=== PATIENT | female | born 1950 | race Caucasian/White ===

== ENCOUNTER 2016-09-18 02:31 | Inpatient (IN) | payer OTHER ==
[2016-09-18] VITALS (10 sets, daily range): BP systolic 93–133; BP diastolic 54–63; PULSE 82–133; RESP 15–20; Ht 172.7 cm; Wt 78.0 kg
[~2016-09-18] VITALS: Ht 172.7 cm; Wt 78.0 kg
[~2016-09-18 02:31] MED LIST: ALBU8.5H3 INH; ATEN-51 PO; CHOL20003 PO; CYAN500T46 PO; DILT180C75 PO; DOCU-144 PO; FER325 PO; FURO20TA3 PO; GABA300C16 PO; HYDR-3498 PO; LEVO50TA74 PO; MONT10TA21 PO; PANT40TA4 PO; SENN-8 PO; VENL75TA2 PO; ZOC10 PO
[2016-09-18] MEDS ORDERED: COU5 PO (08:59)
[2016-09-18] MEDS ORDERED: FUROSEMIDE 20 MG TAB PO PRN (09:00)
[2016-09-18] MEDS ORDERED: METOPROLOL 25 MG TAB PO SCH (09:00)
[2016-09-18] MEDS ORDERED: ACETAMINOPHEN 650 MG SUPP PR PRN (09:00)
[2016-09-18] MEDS ORDERED: ALBUTEROL HFA 8 GM INHALER INH PRN (09:00)
[2016-09-18] MEDS ORDERED: ONDANSETRON 4 MG TAB PO PRN (09:00)
[2016-09-18] MEDS ORDERED: DOCUSATE SODIUM 100 MG CAP PO PRN (09:00)
[2016-09-18] MEDS ORDERED: NACL 0.9% 3 ML SYG IV SCH (09:00)
--- NOTE | 2016-09-18 09:14 | HP ---
Date/Time of Note Date/Time of Note DATE: 09/18/16 TIME: 09:01 Assessment/Plan VTE Prophylaxis VTE Prophylaxis Intervention: heparin Assessment/Plan Problems: (1) Vertigo Status: Chronic Comment: This is a chronic problem and a major issue in her life. Unfortunately use the meclizine may alter her gastroesophageal reflux disease but we should be able to use that. I will try giving her low-dose niacin to assist with this I will have the physical therapist work with her with the anti- vestibular maneuvers exercises to see if she can help herself at home (2) Chest pain Status: Acute Comment: Will go through the rule out [place] protocol however I believe this is not the answer here. I believe her chest pain is partially due to reflux and a lot due to inadequately and poorly treated asthma persistent moderate combined with arthritis. Major impediment to her care is her inability to consistently follow medical instructions which is led to this being her ninth admission in 2 years Qualifiers: Chest pain type: other chest pain Qualified Code: R07.89 - Other chest pain (3) Atrial fibrillation Status: Chronic Comment: Continue anticoagulation. Rate control should not be done with a nonselective beta-kaitlin in this patient with lung disease. As such we will use metoprolol XL along with the diltiazem which can help with some of the gastroesophageal reflux disease Qualifiers: Atrial fibrillation type: chronic Qualified Code: I48.2 - Chronic atrial fibrillation (4) B12 deficiency anemia Status: Chronic Comment: Replace Qualifiers: Vitamin B12 deficiency anemia type: unspecified B12 deficiency Qualified Code: D51.9 - Anemia due to vitamin B12 deficiency, unspecified B12 deficiency type (5) Iron deficiency anemia Status: Chronic Comment: This is likely resulted from the upper source. However I note that she has never had a lower endoscopy. This can be done as an outpatient if we get the patient to cooperate. The patient informs me she has not seen a GI doctor outside of the hospital Qualifiers: Iron deficiency anemia type: chronic blood loss Qualified Code: D50.0 - Iron deficiency anemia due to chronic blood loss (6) Acquired hypothyroidism Status: Chronic Comment: Continue replacement therapy make sure we are giving her enough (7) Hyperlipidemia Status: Chronic Comment: Continue statin therapy Qualifiers: Hyperlipidemia type: pure hypercholesterolemia Qualified Code: E78.00 - Pure hypercholesterolemia (8) Asthma, moderate persistent, poorly-controlled Status: Chronic Comment: She is off of treatment for this and is using albuterol as her only source of therapy which she is using at least twice a day. By definition this is poorly controlled. Should go back on to control her medications now we will adjust away from the noncardioselective beta-kaitlni (9) Adult pyloric stenosis Status: Chronic Comment: This apparently is still in good shape after the last pyloric dilation (10) Deep venous thrombosis of right peroneal vein Status: Chronic Comment: Noted the patient's coumadinized for the A. fib (11) Mild early onset dysthymic disorder, in full remission, with anxious distress, with intermittent major depressive episodes, with current episode Status: Chronic Comment: Continue the venlafaxine HPI/ROS Admit Date/Time Admit Date/Time Sep 18, 2016 at 06:15 Hx of Present Illness This is the [facility] admission in the last 2 years for this 65-year-old right-handed single female admitted on transfer from the emergency room at [facility]. She came with a labile of chest pain. She has an extensive medical history to be documented below however her chest pain has been stable and unchanging for over 2 weeks. She has a history of organic heart disease with chronic atrial fibrillation having had several echocardiograms in the last 2 years. Her echoes have variably been read as having diastolic dysfunction versus not which is a technical issue due to the chronic A. fib. She does not have diabetes she does not have hypertension she does have hyperlipidemia she has a positive family history of coronary disease she is a non-smoker. She has no known elevation of uric acid. It should be noted she has asthma persistent moderate that is actually off of treatment. ROS Constitutional: no complaints (Denies fevers chills or sweats) Eyes: no complaints ENT: no complaints Respiratory: cough (Occasional cough), other (Positive nocturnal awakening), shortness of breath (Denies shortness of breath) Cardiovascular: chest pain (Chest pain described as coming from the back straight through to the front as if she has been penetrated by a spear it does not change with respirations eating changing positions. There is been no associated dyspnea nausea vomiting or diaphoresis), palpitations (Intermittent palpitations) Gastrointestinal: no complaints (Presently denies any GI complaints although she does have reflux) Genitourinary: no complaints Musculoskeletal: back pain (Mid back pain) Skin: no complaints Neurologic: other (Complains of chronic vertigo) Endocrine: no complaints Lymphatic: no complaints Psychological: no complaints PMH/Family/Social Past Medical History Organic heart diseasechronic atrial fibrillation/recurrent episodes of volume overload.; Right peroneal DVT; hypertension; hyperlipidemia; dysthymia with anxiety; iron deficiency anemia; history of pyloric channel ulcer with pyloric stenosis requiring dilation 3 separate times; chronic vertigo Medical History: GERD, high cholesterol, hypothyroid, peptic ulcer disease Past Surgical History Past Surgical Hx: cholecystectomy Family History Significant Family History: heart disease, cancer (Breast cancer), hypertension Social History She was born in [facility] [place] and raise here she has high school education of experience she has held various jobs 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 she lives with a gentleman she care takes for Alcohol Use: none Smoking Status: Former smoker Drug Use: other (Report a remote history of crystal meth usage) Exam/Review of Systems Vital Signs Vitals Vital Signs Date Time Temp Pulse Resp B/P Pulse Ox O2 Delivery O2 Flow Rate FiO2 09/18/16 08:30 103 09/18/16 06:58 97.9 18 133/60 94 09/18/16 06:45 Room Air Exam Exam Extremely difficult historian who will not answer questions directly and needs to be brought back into the line of questioning frequently Constitutional: alert, oriented Psych: anxiety Head: atraumatic, normocephalic Eyes: EOMI, PERRL, nl conjunctiva, nl lids, nl sclera ENMT: mucosa pink and moist, nl external ears & nose, nl nasal mucosa & septum , other (Dentition in poor repair) Neck: non-tender, other (No thyromegaly), supple Respiratory: wheezing (On forced expiratory maneuver she has wheezing; she has increased AP diameter decreased IT ratio) Cardiovascular: irregular rhythm, other (No S3) Gastrointestinal: bowel sounds (Bowel sounds are active), nl liver, spleen, non -tender, soft Musculoskeletal: nl extremities to inspection, nl gait and stance Extremities: normal pulses Neurological: SOAKER SODA WORKER II-XII intact, nl mental status, nl speech, nl strength Medications Medications Current Medications Ondansetron HCl (Zofran Tab) 4 mg Q6H PRN PO NAUSEA AND/OR VOMITING; Start 05/27 at 09:00 Acetaminophen (Tylenol Supp) 650 mg Q6H PRN HI PAIN LEVEL 1-3 OR FEVER; Start 09/18/16 at 09:00; Status UNV Pantoprazole (Protonix Tab) 40 mg DAILY@06 PO ; Start 09/19/16 at 06:00; Status UNV Metoprolol Tartrate (Lopressor) 25 mg BID PO ; Start 09/18/16 at 09:00; Status UNV Salmeterol Xinafoate/ Fluticasone (Advair 250/50 Diskus) 1 inh BID INH ; Start 09/18/16 at 09:00; Status UNV Montelukast Sodium (Singulair) 10 mg HS PO ; Start 09/18/16 at 21:00; Status UNV ALEXANDER MENA MD Sep 18, 2016 09:12
[2016-09-18] MEDS ORDERED: MECLIZINE 12.5 MG TAB PO PRN (09:30)
[2016-09-18 10:19] LABS: ADD SCAN DIFF NO
[2016-09-18] MEDS: GABAPENTIN 300 MG CAP PO SCH ×3 (10:22→20:45)
[2016-09-18] MEDS: SALMETEROL/FLUTICASONE 250/50 INHA INH SCH ×2 (10:22→20:45)
[2016-09-18] MEDS: FERROUS SULFATE (EC) 325 MG TAB PO SCH ×2 (10:23→20:45)
[2016-09-18] MEDS: DILTIAZEM (CD) 180 MG CAP PO SCH (10:23)
[2016-09-18] MEDS: METOPROLOL (XL) 25 MG TAB PO SCH ×2 (10:23→20:46)
[2016-09-18 10:24] LABS: BASOPHILS % 0.5 % (0.0-2.0); EOSINOPHILS # 0.1 10^3/ul (0.0-0.5); EOSINOPHILS % 2.3 % (0.0-7.0); HEMATOCRIT 36.1 % (37.0-47.0); HEMOGLOBIN 11.3 g/dl (12.0-16.0); LYMPHOCYTES # 1.6 10^3/ul (0.8-2.9); LYMPHOCYTES % 25.2 % (15.0-51.0); MEAN CORPUSCULAR HEMOGLOBIN 27.2 pg (29.0-33.0); MEAN CORPUSCULAR HGB CONC 31.3 g/dl (32.0-37.0); MEAN CORPUSCULAR VOLUME 86.8 fl (82.0-101.0); MEAN PLATELET VOLUME 9.7 fl (7.4-10.4); MONOCYTE # 0.3 10^3/ul (0.3-0.9); MONOCYTES % 4.5 % (0.0-11.0); NEUTROPHIL # 4.2 10^3/ul (1.6-7.5); NEUTROPHILS % 67.3 % (39.0-77.0); PLATELET COUNT 381 10^3/UL (140-415); RED BLOOD COUNT 4.16 10^6/ul (4.20-5.40); RED CELL DISTRIBUTION WIDTH 13.3 % (11.5-14.5); WHITE BLOOD COUNT 6.2 10^3/ul (4.8-10.8)
[2016-09-18] MEDS: NIACIN 50 MG TAB PO SCH (10:30)
[2016-09-18 10:35] LABS: ALBUMIN 3.3 g/dl (3.3-4.9); CHLORIDE 108 mmol/L (97-110); INR 2.09; POTASSIUM 3.8 mmol/L (3.5-5.1); PROTIME 23.7 Sec (12.2-14.2); PT RATIO 1.9; SODIUM 144 mmol/L (135-144)
[2016-09-18 10:36] LABS: PARTIAL THROMBOPLASTIN TIME 51.3 Sec (25.0-35.0)
[2016-09-18 10:37] LABS: CREATININE 0.78 mg/dl (0.44-1.00)
[2016-09-18 10:38] LABS: ALANINE AMINOTRANSFERASE 17 IU/L (13-69); ALBUMIN/GLOBULIN RATIO 1.03; ALKALINE PHOSPHATASE 74 IU/L (42-121); ANION GAP 17 (8-16); ASPARTATE AMINO TRANSFERASE 13 IU/L (15-46); BILIRUBIN,INDIRECT 0.1 mg/dl (0-1.1); BILIRUBIN,TOTAL 0.1 mg/dl (0.2-1.3); BLOOD UREA NITROGEN 17 mg/dl (7-20); CALCIUM 9.3 mg/dl (8.4-10.2); CARBON DIOXIDE 23 mmol/L (21-31); GLUCOSE 125 mg/dl (70-220); TOTAL PROTEIN 6.5 g/dl (6.1-8.1)
[2016-09-18 10:49] LABS: TROPONIN-I < 0.012 ng/ml (0.00-0.12)
[2016-09-18] MEDS: VENLAFAXINE (XR) 75 MG CAP PO SCH (11:21)
[2016-09-18 11:24] LABS: IRON 50 ug/dl (35-150)
[2016-09-18 11:33] LABS: TOTAL IRON BINDING CAPACITY 296 ug/dl (241-421)
[2016-09-18] MEDS: PANTOPRAZOLE (EC) 40 MG TAB PO SCH (13:38)
[2016-09-18] MEDS ORDERED: DILTIAZEM 25 MG INJ IV PRN (15:00)
--- NOTE | 2016-09-18 15:47 | CONS ---
DATE OF ADMISSION: 09/18/2016 DATE OF CONSULTATION: 09/18/2016 TYPE OF CONSULTATION: Cardiology REASON FOR CONSULTATION: Atrial fibrillation, rapid ventricular response as well as chest pain, ass ess for acute coronary syndrome. REQUESTING PHYSICIAN: Nicolas Cordoba MD HISTORY OF PRESENT ILLNESS: Ms. Deluna is a 65-year-old female with a history of atrial fibrillatio n on Coumadin, gastric outlet obstruction, dyslipidemia, recurrent bouts of chest pain with negative stress test for ischemia in 06/2016 with preserved left ventricular ejection fraction, depression, anemia, hypothyroidism, asthma, prior DVT, who presented initially to an outside hospital with compl aints of chest pain, back pain, as well as palpitations. At the outside hospital, the patient upon arrival, temperature 36.8, pulse of 132, blood pressure 130/83, respiratory rate 25, saturating 100% . The patient's labs notable for an INR of 2.5, therapeutic. Hemoglobin 11.5, platelet count 336, white blood count of 6.1. Troponin negative. The patient's EKG revealed atrial fibrillation, atria l flutter at a rate of 150 with normal axis and diffuse nonspecific ST and T-wave abnormalities. Th e patient was treated with IV brissa agents and transferred to [facility] due to in surance reasons. Since arrival at [facility], the patient has had overall improve ment in her heart rates with some episodes of tachycardia after receiving ongoing Toprol-XL with p.o . diltiazem. The patient at this time continues to complain of stabbing back pain radiating to her chest with subsequent chest pain at rest. PAST MEDICAL HISTORY: As above in HPI. MEDICATIONS CURRENTLY IN HOSPITAL: 1. Synthroid 50 mcg daily. 2. Singulair 10 mg at bedtime. 3. Lipitor 20 mg at bedtime. 4. Coumadin 5 mg daily. 5. Protonix 40 mg daily. 6. Niacin 50 mg daily. 7. Meclizine p.r.n. 8. Zofran p.r.n. 9. Tylenol p.r.n. 10. Advair b.i.d. 11. Diltiazem CD 180 mg daily. 12. Colace 100 mg p.o. q.12h. 13. Ferrous sulfate. 14. Lasix 20 mg daily p.r.n. 15. Neurontin 300 mg t.i.d. 16. Effexor 75 mg daily. 17. Toprol-XL 25 mg p.o. b.i.d. ALLERGIES: ERYTHROMYCIN. SOCIAL HISTORY: No current tobacco, ETOH or illicit drug use. FAMILY HISTORY: No history of sudden cardiac or early CAD. REVIEW OF SYSTEMS: As above in HPI. CONSTITUTIONAL: No fevers, chills. PULMONARY: No current shortness of breath. CARDIOVASCULAR: Chest pain, atrial fibrillation. GASTROINTESTINAL: No vomiting. GENITOURINARY: No hematuria. MUSCULOSKELETAL: Back pain. PSYCHIATRIC: Positive psychiatric history. NEUROLOGIC: Dizziness. PHYSICAL EXAMINATION: VITAL SIGNS: Temperature of 98.6, blood pressure 113/63, pulse in the 80s to 90s at this time. Sat urating 100%. GENERAL: The patient is alert, awake, complaining of back pain radiating to her chest, dizziness. NECK: JVP approximately 9 cm water. CHEST: Fair movement throughout with mildly decreased breath sounds at bases bilaterally. HEART: Irregularly irregular rhythm, I/ systolic murmur, nondisplaced PMI. ABDOMEN: Positive bowel sounds, soft. EXTREMITIES: No pitting edema, 1+ pulses bilaterally posterior tibial. LABORATORIES: As above in HPI, with most recently from here today at [facility]: White blood count 6.2, hemoglobin 11.3, platelet count 381. Sodium 144, potassium 3.8, creatinine 0.78, BUN 17. Troponin negative. INR of 2.09. IMAGING STUDIES: No imaging studies here for my review at this time. ECG: No electrocardiograms here for my review at this time. IMPRESSION: 1. Atrial fibrillation, rapid ventricular response, now improving with oral brissa agents. 2. Chest pain, assess for acute coronary syndrome with atypical symptomatology and negative stress test 06/2016. 3. Hypertension, under reasonable control. 4. Back pain. 5. Depression. 6. Anemia. 7. Dyslipidemia. 8. Asthma. 9. History of gastric outlet obstruction. 10. History of deep venous thrombosis. RECOMMENDATIONS: 1. At this time, would maintain the patient on telemetry monitoring to follow rhythm and rate contr ol closely. 2. Check serial EKGs to assess for any significant ongoing changes EKG today, EKG for any com plaints of chest pain or change in rhythm, EKG in the morning. 3. Continue the patient's current brissa agents with beta kaitlin and diltiazem with further up titr ation as necessary to improve overall heart rate control. 4. Continue the patient's Coumadin following a therapeutic INR closely. 5. Continue the patient's statin and adjust it according to a fasting lipid panel that is to be reid cked. 6. Continue the patient's iron replacement therapy in the setting of anemia, although the patient d oes not have microcytic indices at this time consistent with that. 7. Continue the patient's current Niacin additionally for treatment of lipid disorder, and continue the patient's psychiatric medications. Follow the patient's volume status closely and will check a TSH to assess the patient's current thyroid state and its possible contribution to her current atri al fibrillation. Thank you for allowing me to take part in the care of this patient. I will continue to follow her yousif hidalgo closely with you. Further recommendations will be made as the patient progresses through her in patient hospital clinical course. Dictated By: TRAY SALINAS/AIDEE Conf#: [id number] DID#: [id number] CC: NICOLAS CORDOBA MD;*EndCC*
[2016-09-18] MEDS: ACETAMINOPHEN 325 MG TAB PO PRN ×2 (15:49→22:26)
[2016-09-18 16:22] LABS: BARBITURATES Negative (NEGATIVE); BENZODIAZEPINES Negative (NEGATIVE); CANNABINOIDS Negative (NEGATIVE); COCAINE Negative (NEGATIVE); OPIATES Negative (NEGATIVE)
[2016-09-18] MEDS: WARFARIN 5 MG TAB PO SCH (17:28)
[2016-09-18] MEDS: ATORVASTATIN 10 MG TAB PO SCH (20:45)
[2016-09-18] MEDS: MONTELUKAST 10 MG TAB PO SCH (20:45)
[2016-09-19] VITALS (14 sets, daily range): BP systolic 92–132; BP diastolic 55–69; PULSE 61–82; RESP 15–20
[2016-09-19 05:40] LABS: ADD SCAN DIFF NO
[2016-09-19] MEDS: PANTOPRAZOLE (EC) 40 MG TAB PO SCH (05:48)
[2016-09-19 05:53] LABS: BASOPHILS % 0.8 % (0.0-2.0); EOSINOPHILS # 0.2 10^3/ul (0.0-0.5); EOSINOPHILS % 3.4 % (0.0-7.0); HEMATOCRIT 29.2 % (37.0-47.0); HEMOGLOBIN 9.2 g/dl (12.0-16.0); LYMPHOCYTES # 1.2 10^3/ul (0.8-2.9); LYMPHOCYTES % 25.3 % (15.0-51.0); MEAN CORPUSCULAR HEMOGLOBIN 27.1 pg (29.0-33.0); MEAN CORPUSCULAR HGB CONC 31.5 g/dl (32.0-37.0); MEAN CORPUSCULAR VOLUME 85.9 fl (82.0-101.0); MEAN PLATELET VOLUME 9.9 fl (7.4-10.4); MONOCYTE # 0.3 10^3/ul (0.3-0.9); MONOCYTES % 6.3 % (0.0-11.0); PLATELET COUNT 319 10^3/UL (140-415); RED CELL DISTRIBUTION WIDTH 13.2 % (11.5-14.5); WHITE BLOOD COUNT 4.8 10^3/ul (4.8-10.8)
[2016-09-19 06:05] LABS: ALBUMIN 2.8 g/dl (3.3-4.9)
[2016-09-19 06:08] LABS: CALCIUM 8.6 mg/dl (8.4-10.2); CREATININE 0.93 mg/dl (0.44-1.00); TOTAL PROTEIN 5.6 g/dl (6.1-8.1)
[2016-09-19 06:35] LABS: THYROID STIMULATING HORMONE 2.53 MIU/L (0.465-4.680)
[2016-09-19] MEDS: LEVOTHYROXINE 50 MCG TAB PO SCH (07:37)
[2016-09-19] MEDS: GABAPENTIN 300 MG CAP PO SCH ×3 (08:38→20:55)
[2016-09-19] MEDS: VENLAFAXINE (XR) 75 MG CAP PO SCH (08:38)
[2016-09-19] MEDS: SALMETEROL/FLUTICASONE 250/50 INHA INH SCH ×2 (08:38→20:54)
[2016-09-19] MEDS: DILTIAZEM (CD) 180 MG CAP PO SCH (08:38)
[2016-09-19] MEDS: FERROUS SULFATE (EC) 325 MG TAB PO SCH ×2 (08:38→20:55)
[2016-09-19] MEDS: CYANOCOBALAMIN 1000 MCG INJ IM SCH (08:39)
[2016-09-19] MEDS: NIACIN 50 MG TAB PO SCH (08:39)
[2016-09-19] MEDS: METOPROLOL (XL) 25 MG TAB PO SCH ×2 (09:00→20:55)
--- NOTE | 2016-09-19 12:29 | PN ---
Date/Time of Note Date/Time of Note DATE: 09/19/16 TIME: 12:26 Assessment/Plan VTE Prophylaxis VTE Prophylaxis Intervention: other Lines/Catheters IV Catheter Type (from Nrs): Saline Lock Assessment/Plan Problems: (1) B12 deficiency anemia Status: Chronic Comment: We will give 1 additional dose to help bring her levels up. This is also should also help with her did energy Qualifiers: Vitamin B12 deficiency anemia type: unspecified B12 deficiency Qualified Code: D51.9 - Anemia due to vitamin B12 deficiency, unspecified B12 deficiency type (2) Iron deficiency anemia Status: Chronic Comment: We will give 1 dose IV to get her levels up. Qualifiers: Iron deficiency anemia type: chronic blood loss Qualified Code: D50.0 - Iron deficiency anemia due to chronic blood loss (3) Vertigo Status: Chronic Comment: She reports that this is still an issue although I believe that with vestibular physical therapy she would do better. (4) Atrial fibrillation Status: Chronic Comment: Her rate is controlled and she is anticoagulated adequately with Coumadin Qualifiers: Atrial fibrillation type: chronic Qualified Code: I48.2 - Chronic atrial fibrillation (5) Acquired hypothyroidism Status: Chronic Comment: She is on stable replacement therapy (6) Hyperlipidemia Status: Chronic Qualifiers: Hyperlipidemia type: pure hypercholesterolemia Qualified Code: E78.00 - Pure hypercholesterolemia (7) Asthma, moderate persistent, poorly-controlled Status: Chronic Comment: This I believe is the cause of her symptoms including the smoldering chest pain. She is improving with treatment with Advair and that should be continued as an outpatient. The patient has been carefully counseled (8) Mild early onset dysthymic disorder, in full remission, with anxious distress, with intermittent major depressive episodes, with current episode Status: Chronic Comment: There is something going on in this patient's exterior life that she is not sharing. field services manager meet with her as she appears to be far more reticent to leave the hospital that makes sense under the circumstances Subjective 24 Hr Interval Summary Free Text/Dictation Patient reports she is feeling somewhat better. However when is discussed with the idea of going home the patient states that she would rather go to an ECF for a few days. The patient does not answer questions directly Constitutional: no complaints (Denies fever chills or sweats) Respiratory: no complaints (Denies dyspnea or cough) Cardiovascular: chest pain (Reports her chest pain has improved) Gastrointestinal: no complaints Genitourinary: no complaints Exam/Review of Systems Vital Signs Vitals Vital Signs Date Time Temp Pulse Resp B/P Pulse Ox O2 Delivery O2 Flow Rate FiO2 09/19/16 12:19 74 09/19/16 11:46 98.0 20 92/55 96 09/19/16 00:00 Room Air Intake and Output 09/18/16 09/18/16 09/19/16 15:00 23:00 07:00 Intake Total 800 ml 300 ml Balance 800 ml 300 ml Exam Constitutional: alert, oriented ENMT: other (Dentition in poor repair) Neck: non-tender, supple Respiratory: clear to auscultation, normal air movement Cardiovascular: nl pulses, regular rate and rhythm Results Result Diagram: 09/19/1651609/19/16516 Results 24 hrs Laboratory Tests Test 09/18/16 13:40 09/18/16 17:20 09/19/16 01:00 09/19/16 05:17 Urine Amphetamines Screen Negative Urine Barbiturates Negative Urine Benzodiazepines Screen Negative Urine Cannabinoids Negative Urine Cocaine Screen Negative Urine Opiates Screen Negative Troponin I < 0.012 0.023 Alanine Aminotransferase (ALT/SGPT) 18 Albumin 2.8 L Albumin/Globulin Ratio 1.00 Alkaline Phosphatase 65 Anion Gap 14 Aspartate Amino Transf (AST/SGOT) 12 L Basophils # 0.0 Basophils % 0.8 Blood Urea Nitrogen 21 H Calcium Level 8.6 Carbon Dioxide Level 24 Chloride Level 108 Creatinine 0.93 Direct Bilirubin 0.00 Eosinophils # 0.2 Eosinophils % 3.4 Globulin 2.80 Glucose Level 86 Hematocrit 29.2 L Hemoglobin 9.2 L Indirect Bilirubin 0.0 Lymphocytes # 1.2 Lymphocytes % 25.3 Mean Corpuscular Hemoglobin 27.1 L Mean Corpuscular Hemoglobin Concent 31.5 L Mean Corpuscular Volume 85.9 Mean Platelet Volume 9.9 Monocytes # 0.3 Monocytes % 6.3 Neutrophils # 3.0 Neutrophils % 64.0 Nucleated Red Blood Cells # 0.0 Nucleated Red Blood Cells % 0.0 Platelet Count 319 Potassium Level 4.0 Red Blood Count 3.40 L Red Cell Distribution Width 13.2 Sodium Level 142 Thyroid Stimulating Hormone (TSH) 2.530 Total Bilirubin 0.0 L Total Protein 5.6 L White Blood Count 4.8 # Medications Medications Current Medications Ondansetron HCl (Zofran Tab) 4 mg Q6H PRN PO NAUSEA AND/OR VOMITING Last administered on 09/18/16 13:31; Admin Dose 4 MG; Start 09/18/16 at 09:00 Acetaminophen (Tylenol Supp) 650 mg Q6H PRN OR PAIN LEVEL 1-3 OR FEVER; Start 09/18/16 at 09:00 Pantoprazole (Protonix Tab) 40 mg DAILY@06 PO Last administered on 09/19/16 05 :48; Admin Dose 40 MG; Start 09/18/16 at 14:00 Salmeterol Xinafoate/ Fluticasone (Advair 250/50 Diskus) 1 inh BID INH Last administered on 09/19/16 08:38; Admin Dose 1 INH; Start 09/18/16 at 09:00 Montelukast Sodium (Singulair) 10 mg HS PO Last administered on 09/18/16 20:45 ; Admin Dose 10 MG; Start 09/18/16 at 21:00 Albuterol (Ventolin Hfa) 2 puff TID PRN INH WHEEZING AND SOB; Start 09/18/16 at 09:00 Diltiazem HCl (Cardizem Cd) 180 mg DAILY PO Last administered on 09/19/16 08: 38; Admin Dose 180 MG; Start 09/18/16 at 09:00 Docusate Sodium (Colace) 100 mg Q12H PRN PO CONSTIPATION; Start 09/18/16 at 09: 00 Ferrous Sulfate (Ferrous Sulfate (Ec)) 325 mg BID PO Last administered on 08:38; Admin Dose 325 MG; Start 09/18/16 at 09:00 Furosemide (Lasix) 20 mg DAILY PRN PO lower extremity edema; Start 09/18/16 at 09:00 Gabapentin (Neurontin) 300 mg TID PO Last administered on 09/19/16 08:38; Admin Dose 300 MG; Start 09/18/16 at 09:00 Venlafaxine HCl (Effexor Xr) 75 mg DAILY PO Last administered on 09/19/16 08: 38; Admin Dose 75 MG; Start 09/18/16 at 09:00 Metoprolol Succinate (Toprol Xl) 25 mg BID PO Last administered on 09/18/16 20 :46; Admin Dose 25 MG; Start 09/18/16 at 09:00 Atorvastatin Calcium (Lipitor) 10 mg HS PO Last administered on 09/18/16 20:45 ; Admin Dose 10 MG; Start 09/18/16 at 21:00 Niacin (Niacin) 50 mg DAILY PO ; Start 09/18/16 at 10:30 Meclizine HCl (Antivert) 12.5 mg TID PRN PO vertigo; Start 09/18/16 at 09:30 Cyanocobalamin (Vitamin B12 Inj) 1,000 mcg DAILY IM Last administered on 08:39; Admin Dose 1,000 MCG; Start 09/19/16 at 09:00; Stop 09/22/16 at 08: 59 Warfarin Sodium (Coumadin) 5 mg DAILY@17 PO Last administered on 09/18/16 17: 28; Admin Dose 5 MG; Start 09/18/16 at 17:00 Diltiazem HCl (Cardizem Iv) 5 mg Q4 PRN IV HR>110 Hold SBP<100; Start 09/18/16 at 15:00 Acetaminophen (Tylenol Tab) 650 mg Q6H PRN PO PAIN AND OR ELEVATED TEMP Last administered on 09/18/16 22:26; Admin Dose 650 MG; Start 09/18/16 at 15:30 ALEXANDER MENA MD Sep 19, 2016 12:29
[2016-09-19] MEDS ORDERED: LEVOFLOXACIN 750 MG TABLET PO ONE (12:30)
[2016-09-19] MEDS ORDERED: FOSFOMYCIN 3 GM PACKET PO ONE (13:30)
[2016-09-19] MEDS ORDERED: CYANOCOBALAMIN 1000 MCG INJ SC ONE (13:30)
[2016-09-19] MEDS ORDERED: SOD FERRIC GLUC COMPLX 125 MG in SOD CHLORIDE 0.9% 100 ML IVPB ONE (13:45)
[2016-09-19] MEDS ORDERED: NITROGLYCERIN (SL) 0.4 MG TAB SL PRN (14:30)
--- NOTE | 2016-09-19 14:30 | CONS ---
Date/Time of Note Date/Time of Note DATE: 09/19/16 TIME: 14:25 Assessment/Plan Assessment/Plan Chief Complaint/Hosp Course IMPRESSION: 1. Atrial fibrillation, rapid ventricular response, now improved with oral brissa agents. 2. Chest pain, assess for acute coronary syndrome with atypical symptomatology and negative stress test 06/2016. -Negtaive troponin x 3 3. Hypertension, under reasonable control. 4. Back pain. 5. Depression. 6. Anemia. 7. Dyslipidemia. 8. Asthma. 9. History of gastric outlet obstruction. 10. History of deep venous thrombosis. Recc: -tele -Continue current BB/dilt -Continue coumadin and f/u INR which has been therapeutic -PRN SLNTG -Follow volume status closely -Check fasting lipid panel for general risk Problems: Consultation Date/Type/Reason Admit Date/Time Sep 18, 2016 at 06:15 Initial Consult Date 09/18/2016 Type of Consultation: Cardiology Reason for Consultation AF Referring Provider: ALEXANDER MENA MD Exam/Review of Systems Vital Signs Vitals Vital Signs Date Time Temp Pulse Resp B/P Pulse Ox O2 Delivery O2 Flow Rate FiO2 09/19/16 12:19 74 09/19/16 11:46 98.0 20 92/55 96 09/19/16 00:00 Room Air Intake and Output 09/18/16 09/18/16 09/19/16 15:00 23:00 07:00 Intake Total 800 ml 300 ml Balance 800 ml 300 ml Exam Review of Systems: CONSTITUTIONAL: No fevers, chills. PULMONARY: No sob CARDIOVASCULAR: No chest pain/palpitations GASTROINTESTINAL: No nausea/vomiting. GENITOURINARY: No hematuria/dysuria. MUSCULOSKELETAL: No myagias/arthalgias. PSYCHIATRIC: The patient denies depression. NEUROLOGIC: lethargic Constitutional: other (sleeping) Psych: no complaints Head: normocephalic ENMT: mucosa pink and moist Neck: jvd (8-9 cm water), supple Respiratory: clear to auscultation Cardiovascular: irregular rhythm Gastrointestinal: non-tender, soft Musculoskeletal: muscle tone (normal) Extremities: edema (none) Neurological: lethargic Results Result Diagram: 09/19/1651609/19/1617 Results 24 hrs Laboratory Tests Test 09/18/16 17:20 09/19/16 01:00 09/19/16 05:17 Troponin I < 0.012 0.023 Alanine Aminotransferase (ALT/SGPT) 18 Albumin 2.8 L Albumin/Globulin Ratio 1.00 Alkaline Phosphatase 65 Anion Gap 14 Aspartate Amino Transf (AST/SGOT) 12 L Basophils # 0.0 Basophils % 0.8 Blood Urea Nitrogen 21 H Calcium Level 8.6 Carbon Dioxide Level 24 Chloride Level 108 Creatinine 0.93 Direct Bilirubin 0.00 Eosinophils # 0.2 Eosinophils % 3.4 Globulin 2.80 Glucose Level 86 Hematocrit 29.2 L Hemoglobin 9.2 L Indirect Bilirubin 0.0 Lymphocytes # 1.2 Lymphocytes % 25.3 Mean Corpuscular Hemoglobin 27.1 L Mean Corpuscular Hemoglobin Concent 31.5 L Mean Corpuscular Volume 85.9 Mean Platelet Volume 9.9 Monocytes # 0.3 Monocytes % 6.3 Neutrophils # 3.0 Neutrophils % 64.0 Nucleated Red Blood Cells # 0.0 Nucleated Red Blood Cells % 0.0 Platelet Count 319 Potassium Level 4.0 Red Blood Count 3.40 L Red Cell Distribution Width 13.2 Sodium Level 142 Thyroid Stimulating Hormone (TSH) 2.530 Total Bilirubin 0.0 L Total Protein 5.6 L White Blood Count 4.8 # Medications Medications Current Medications Ondansetron HCl (Zofran Tab) 4 mg Q6H PRN PO NAUSEA AND/OR VOMITING Last administered on 09/18/16 13:31; Admin Dose 4 MG; Start 09/18/16 at 09:00 Acetaminophen (Tylenol Supp) 650 mg Q6H PRN [place] PAIN LEVEL 1-3 OR FEVER; Start 09/18/16 at 09:00 Pantoprazole (Protonix Tab) 40 mg DAILY@06 PO Last administered on 09/19/16 05 :48; Admin Dose 40 MG; Start 09/18/16 at 14:00 Salmeterol Xinafoate/ Fluticasone (Advair 250/50 Diskus) 1 inh BID INH Last administered on 09/19/16 08:38; Admin Dose 1 INH; Start 09/18/16 at 09:00 Montelukast Sodium (Singulair) 10 mg HS PO Last administered on 09/18/16 20:45 ; Admin Dose 10 MG; Start 09/18/16 at 21:00 Albuterol (Ventolin Hfa) 2 puff TID PRN INH WHEEZING AND SOB; Start 09/18/16 at 09:00 Diltiazem HCl (Cardizem Cd) 180 mg DAILY PO Last administered on 09/19/16 08: 38; Admin Dose 180 MG; Start 09/18/16 at 09:00 Docusate Sodium (Colace) 100 mg Q12H PRN PO CONSTIPATION; Start 09/18/16 at 09: 00 Ferrous Sulfate (Ferrous Sulfate (Ec)) 325 mg BID PO Last administered on 08:38; Admin Dose 325 MG; Start 09/18/16 at 09:00 Furosemide (Lasix) 20 mg DAILY PRN PO lower extremity edema; Start 09/18/16 at 09:00 Gabapentin (Neurontin) 300 mg TID PO Last administered on 09/19/16 08:38; Admin Dose 300 MG; Start 09/18/16 at 09:00 Venlafaxine HCl (Effexor Xr) 75 mg DAILY PO Last administered on 09/19/16 08: 38; Admin Dose 75 MG; Start 09/18/16 at 09:00 Metoprolol Succinate (Toprol Xl) 25 mg BID PO Last administered on 09/18/16 20 :46; Admin Dose 25 MG; Start 09/18/16 at 09:00 Atorvastatin Calcium (Lipitor) 10 mg HS PO Last administered on 09/18/16 20:45 ; Admin Dose 10 MG; Start 09/18/16 at 21:00 Niacin (Niacin) 50 mg DAILY PO ; Start 09/18/16 at 10:30 Meclizine HCl (Antivert) 12.5 mg TID PRN PO vertigo; Start 09/18/16 at 09:30 Cyanocobalamin (Vitamin B12 Inj) 1,000 mcg DAILY IM Last administered on 08:39; Admin Dose 1,000 MCG; Start 09/19/16 at 09:00; Stop 09/22/16 at 08: 59 Warfarin Sodium (Coumadin) 5 mg DAILY@17 PO Last administered on 09/18/16 17: 28; Admin Dose 5 MG; Start 09/18/16 at 17:00 Diltiazem HCl (Cardizem Iv) 5 mg Q4 PRN IV HR>110 Hold SBP<100; Start 09/18/16 at 15:00 Acetaminophen 650 mg 650 mg Q6H PRN PO PAIN AND OR ELEVATED TEMP Last administered on 09/18/16t 22:26; Admin Dose 650 MG; Start 09/18/16 at 15:30 Ferric Sodium Gluconate Complex/ Sodium Chloride (Ferrlecit/NS) 110 ml @ 100 mls/hr ONCE ONCE IVPB ; Start 09/19/16 at 13:45; Stop 09/19/16 at 14:50 TRAY COLUNGA Sep 19, 2016 14:30
--- NOTE | 2016-09-19 16:09 | RADRPT ---
Vent Rate: 71 bpm RR Interval: 0 msec [place] Interval: 0 msec QRS Duration: 94 msec QT Interval: 394 msec QTC Interval: 428 msec P-R-T [place]: 0 - 72 - 68 degrees Atrial fibrillation Septal infarct , age undetermined Abnormal ECG Electronically Signed By: Lester Corona [phone]
[2016-09-19] MEDS: WARFARIN 5 MG TAB PO SCH (17:48)
[2016-09-19] MEDS: ATORVASTATIN 10 MG TAB PO SCH (20:55)
[2016-09-19] MEDS: MONTELUKAST 10 MG TAB PO SCH (20:55)
[2016-09-19] MEDS: ACETAMINOPHEN 325 MG TAB PO PRN (23:04)
[2016-09-20] VITALS (10 sets, daily range): BP systolic 104–124; BP diastolic 58–71; PULSE 61–70; RESP 18–20
[2016-09-20] MEDS: PANTOPRAZOLE (EC) 40 MG TAB PO SCH (05:52)
[2016-09-20 05:59] LABS: INR 2.14; PROTIME 24.1 Sec (12.2-14.2); PT RATIO 1.9
[2016-09-20] MEDS: NIACIN 50 MG TAB PO SCH (09:00)
[2016-09-20] MEDS: VENLAFAXINE (XR) 75 MG CAP PO SCH (09:11)
[2016-09-20] MEDS: LEVOTHYROXINE 50 MCG TAB PO SCH (09:12)
[2016-09-20] MEDS: METOPROLOL (XL) 25 MG TAB PO SCH (09:12)
[2016-09-20] MEDS: GABAPENTIN 300 MG CAP PO SCH ×2 (09:12→12:59)
[2016-09-20] MEDS: DILTIAZEM (CD) 180 MG CAP PO SCH (09:13)
[2016-09-20] MEDS: SALMETEROL/FLUTICASONE 250/50 INHA INH SCH (09:13)
[2016-09-20] MEDS: CYANOCOBALAMIN 1000 MCG INJ IM SCH (09:13)
[2016-09-20] MEDS: FERROUS SULFATE (EC) 325 MG TAB PO SCH (09:15)
[2016-09-20] MEDS ORDERED: DILT180C75 PO (14:39)
[2016-09-20] MEDS ORDERED: DOCU-144 PO (14:39)
[2016-09-20] MEDS ORDERED: GABA300C16 PO (14:39)
[2016-09-20] MEDS ORDERED: ATEN-51 PO (14:39)
[2016-09-20] MEDS ORDERED: FURO20TA3 PO (14:39)
[2016-09-20] MEDS ORDERED: ZOC10 PO (14:39)
[2016-09-20] MEDS ORDERED: LEVO50TA74 PO (14:39)
[2016-09-20] MEDS ORDERED: VENL75TA2 PO (14:39)
[2016-09-20] MEDS ORDERED: COU5 PO (14:39)
--- NOTE | 2016-09-20 14:40 | PDOCDIS ---
Discharge Instructions CONDITION Patient Condition: Good HOME CARE INSTRUCTIONS: Diet Instructions: Regular ACTIVITY: Activity Restrictions: No Restrictions FOLLOW UP/APPOINTMENTS Appointments F/U WITH YOUR PCP IN 1-2 WEEKS RICHARD ALEXANDER Sep 20, 2016 14:40
--- NOTE | 2016-09-20 14:52 | CONS ---
Date/Time of Note Date/Time of Note DATE: 09/20/16 TIME: 14:50 Assessment/Plan Assessment/Plan Chief Complaint/Hosp Course IMPRESSION: 1. Atrial fibrillation, rapid ventricular response, now improved with oral brissa agents. 2. Chest pain, assess for acute coronary syndrome with atypical symptomatology and negative stress test 06/2016. -Negtaive troponin x 3 3. Hypertension, under reasonable control. 4. Back pain. 5. Depression. 6. Anemia. 7. Dyslipidemia. 8. Asthma. 9. History of gastric outlet obstruction. 10. History of deep venous thrombosis. Recc: -tele -Continue current BB/dilt -Continue coumadin and f/u INR which has been therapeutic -PRN SLNTG -Follow volume status closely -D/C planning with outpatient f/u Problems: Consultation Date/Type/Reason Admit Date/Time Sep 18, 2016 at 06:15 Initial Consult Date 09/18/2016 Type of Consultation: Cardiology Reason for Consultation Chest pain Referring Provider: ALEXANDER MENA MD Exam/Review of Systems Vital Signs Vitals Vital Signs Date Time Temp Pulse Resp B/P Pulse Ox O2 Delivery O2 Flow Rate FiO2 09/20/16 12:22 70 09/20/16 11:14 98.3 18 114/59 97 09/20/16 04:00 Room Air Intake and Output 09/19/16 09/19/16 09/20/16 15:00 23:00 07:00 Intake Total 1360 ml 280 ml Balance 1360 ml 280 ml Exam Review of Systems: CONSTITUTIONAL: No fevers, chills. PULMONARY: No sob CARDIOVASCULAR: No chest pain/palpitations GASTROINTESTINAL: No nausea/vomiting. GENITOURINARY: No hematuria/dysuria. MUSCULOSKELETAL: No myagias/arthalgias. PSYCHIATRIC: The patient denies depression. NEUROLOGIC: No weakness Constitutional: alert, oriented Head: normocephalic ENMT: mucosa pink and moist Neck: jvd (9 cm water), supple Respiratory: clear to auscultation Cardiovascular: regular rate and rhythm Gastrointestinal: non-tender, soft Musculoskeletal: muscle tone (normal) Extremities: edema (none) Neurological: other (No focal deficits) Results Result Diagram: 09/19/1651609/19/1617 Results 24 hrs Laboratory Tests Test 09/20/16 05:13 Cholesterol Level 114 Cholesterol/HDL Ratio 3.0 HDL Cholesterol 37 INR International Normalized Ratio 2.14 LDL Cholesterol, Calculated 61 Prothrombin Time 24.1 H Prothrombin Time Ratio 1.9 Triglycerides Level 82 Medications Medications Current Medications Ondansetron HCl (Zofran Tab) 4 mg Q6H PRN PO NAUSEA AND/OR VOMITING Last administered on 09/18/16 13:31; Admin Dose 4 MG; Start 09/18/16 at 09:00 Acetaminophen (Tylenol Supp) 650 mg Q6H PRN [place] PAIN LEVEL 1-3 OR FEVER; Start 09/18/16 at 09:00 Pantoprazole (Protonix Tab) 40 mg DAILY@06 PO Last administered on 09/20/16 05 :52; Admin Dose 40 MG; Start 09/18/16 at 14:00 Salmeterol Xinafoate/ Fluticasone (Advair 250/50 Diskus) 1 inh BID INH Last administered on 09/20/16 09:13; Admin Dose 1 INH; Start 09/18/16 at 09:00 Montelukast Sodium (Singulair) 10 mg HS PO Last administered on 09/19/16 20:55 ; Admin Dose 10 MG; Start 09/18/16 at 21:00 Albuterol (Ventolin Hfa) 2 puff TID PRN INH WHEEZING AND SOB; Start 09/18/16 at 09:00 Diltiazem HCl (Cardizem Cd) 180 mg DAILY PO Last administered on 09/20/16 09: 13; Admin Dose 180 MG; Start 09/18/16 at 09:00 Docusate Sodium (Colace) 100 mg Q12H PRN PO CONSTIPATION; Start 09/18/16 at 09: 00 Ferrous Sulfate (Ferrous Sulfate (Ec)) 325 mg BID PO Last administered on 09:15; Admin Dose 325 MG; Start 09/18/16 at 09:00 Furosemide (Lasix) 20 mg DAILY PRN PO lower extremity edema; Start 09/18/16 at 09:00 Gabapentin (Neurontin) 300 mg TID PO Last administered on 09/20/16 12:59; Admin Dose 300 MG; Start 09/18/16 at 09:00 Venlafaxine HCl (Effexor Xr) 75 mg DAILY PO Last administered on 09/20/16 09: 11; Admin Dose 75 MG; Start 09/18/16 at 09:00 Metoprolol Succinate (Toprol Xl) 25 mg BID PO Last administered on 09/20/16 09 :12; Admin Dose 25 MG; Start 09/18/16 at 09:00 Atorvastatin Calcium (Lipitor) 10 mg HS PO Last administered on 09/19/16 20:55 ; Admin Dose 10 MG; Start 09/18/16 at 21:00 Niacin (Niacin) 50 mg DAILY PO Last administered on 09/20/16 09:00; Admin Dose 50 MG; Start 09/18/16 at 10:30 Meclizine HCl (Antivert) 12.5 mg TID PRN PO vertigo Last administered on 11:36; Admin Dose 12.5 MG; Start 09/18/16 at 09:30 Cyanocobalamin (Vitamin B12 Inj) 1,000 mcg DAILY IM Last administered on 09:13; Admin Dose 1,000 MCG; Start 09/19/16 at 09:00; Stop 09/22/16 at 08: 59 Warfarin Sodium (Coumadin) 5 mg DAILY@17 PO Last administered on 09/19/16 17: 48; Admin Dose 5 MG; Start 09/18/16 at 17:00 Diltiazem HCl (Cardizem Iv) 5 mg Q4 PRN IV HR>110 Hold SBP<100; Start 09/18/16 at 15:00 Acetaminophen (Tylenol Tab) 650 mg Q6H PRN PO PAIN AND OR ELEVATED TEMP Last administered on 09/19/16 23:04; Admin Dose 650 MG; Start 09/18/16 at 15:30 Nitroglycerin (Nitroglycerin (Sl Tab) 0.4 Mg) 1 tab Q5M PRN SL ANGINA; Start at 14:30 TRAY COLUNGA Sep 20, 2016 14:51
[2016-09-20] MEDS: WARFARIN 5 MG TAB PO SCH (17:38)
--- NOTE | 2016-09-20 20:41 | DS ---
DATE OF ADMISSION: 09/18/2016 DATE OF DISCHARGE: 09/20/2016 DISCHARGE DIAGNOSES: 1. Chest pain. Acute coronary syndrome ruled out. The patient had a negative stress test recently . 2. Chronic vertigo. The patient recommended to follow up with Ears, Nose, Throat. 3. Chronic atrial fibrillation. Continue Coumadin and atenolol. 4. Hypothyroidism. Continue home medication. 5. Asthma. Continue albuterol. HOSPITAL COURSE: The patient is a 65-year-old female with multiple hospital admissions for chest pa in as well as vertigo. She has had multiple workups both at [facility] and here at [facility]. This is her ninth admission. The patient presents once again with chest pain. She was seen b y Cardiology. ACS was ruled out. There was no indication for further diagnostics as the patient lemus d a negative stress test recently in 06/2016. Once again, she was ruled out for ACS. She had no ot her acute issues. She was found to be stable for discharge. On day of discharge, the patient's vit al signs, labs, physical exam were stable. She had no acute complaints. Questions were answered. CONDITION ON DISCHARGE: Stable. DISPOSITION: Home. MEDICATIONS: The patient is to continue usual home medications. Majority of home medications were renewed. No new medications were prescribed. FOLLOWUP: The patient to follow up with her PCP in 1 to 2 weeks. Greater than 30 minutes was spent coordinating discharge of patient. Dictated By: RICHARD ALEXANDER MD BS/NTS Conf#: [id number] DID#: [id number]
== END 2016-09-20 19:15 | disposition home or self-care (01) | DRG 313 ==
LOC: TEL 06:15
PROVIDERS: ADMIT Family Medicine; ATTEND Family Medicine
DX: R07.9 Chest pain, unspecified (principal); K31.1 Adult hypertrophic pyloric stenosis; I48.91 Unspecified atrial fibrillation; R42 Dizziness and giddiness; D50.9 Iron deficiency anemia, unspecified; E78.5 Hyperlipidemia, unspecified; J45.909 Unspecified asthma, uncomplicated; I10 Essential (primary) hypertension; E03.9 Hypothyroidism, unspecified
CPT/HCPCS: 80053; 80061; 80307; 82728; 83540; 84443; 84484; 85025; 85610; 85651; 85730; 86592; 86803; 87086; 87340; 93005; 97162; J2916; J3420

== ENCOUNTER 2017-09-01 09:27 | Inpatient (IN) | END 2017-09-06 18:22 | disposition home or self-care (01) | DRG 389 ==

== ENCOUNTER 2017-12-17 08:23 | Inpatient (IN) | END 2017-12-18 16:47 | disposition home or self-care (01) | DRG 313 ==